=== PATIENT | male | born 1980 | race Caucasian/White ===

== ENCOUNTER 2018-09-13 13:42 | Emergency (ER) | payer OTHER ==
[~2018-09-13] VITALS: Ht 177.8 cm; Wt 104.3 kg
[2018-09-13 15:43] LABS: ANION GAP 8 mmol/L (7-16); BUN 11 mg/dL (7-18); CALCIUM 9.1 mg/dL (8.5-10.1); CHLORIDE 105 mmol/L (98-107); CO2 27 mmol/L (21-32); CREATININE 0.9 mg/dL (0.7-1.3); GLUCOSE 82 mg/dL (74-106); POTASSIUM 3.8 mmol/L (3.5-5.1); SODIUM 140 mmol/L (136-145)
[2018-09-13 15:51] LABS: TROPONIN-I <0.06 ng/mL (<0.06)
[2018-09-13 16:57] LABS: ABSOLUTE NEUTROPHILS 4.7 thou/uL (1.4-8.2); BASOPHILS 0.3 % (0.0-2.0); EOSINOPHILS 1.7 % (0.0-3.0); HEMATOCRIT 42.4 % (42.0-52.0); HEMOGLOBIN 14.8 gm/dL (14.0-18.0); MCH 30.6 pg (26.0-34.0); MCV 87.4 fL (80.0-100.0); MONOCYTES 7.9 % (1.0-8.0); PLATELET COUNT 217 thou/uL (150-400); POLYS 62.1 % (36.0-66.0); RBC 4.85 mil/uL (4.50-6.00); RDW 13.1 % (10.5-14.5); WBC 7.6 thou/uL (4.0-11.0)
[2018-09-13] MEDS ORDERED: MOBIC15 MG PO (18:02)
[2018-09-13] MEDS ORDERED: ZANAFLEX4 MG PO (18:03)
[2018-09-13 19:04] VITALS: BP 133/84
--- NOTE | 2018-09-14 11:09 | EKG ---
[place] [address] [facility] [place] [address] ELECTROCARDIOGRAM REPORT Name: JUNE SANTIAGO Room #: DEP Dwayne#: [id number] ������������������ Admission: 09/13/18 ������������������ Attend Phys: Discharge: 09/13/18 ������������������ Date of : 76 Report #: [id number] ����������������������������������������������������������������� [id number] THIS REPORT FOR: //name// [facility] ED Test Date: 2018-09-13 Test Time: 13:49:42 Pat Name: JUNE SANTIAGO Department: Room: Gender: [employer]: [place] : 1980 Requested By: Marcus Ling Order Number: [id number] MD: Lamin Flores Measurements Intervals [place] Rate: 91 P: 19 KS: 155 QRS: -8 QRSD: 90 T: 17 QT: 331 QTc: 408 Interpretive Statements Sinus rhythm Normal tracing No previous ECG available for comparison Electronically Signed On 09-14-2018 11:09:02 CDT by Lamin Flores [email or web address] ��������������������������������������������� <ELECTRONICALLY SIGNED> ���������������������������������������� By: Lamin Flores MD, [facility] ��������������������������������������������� 09/14/18 [id number] Lamin Flores MD, FACC /EPI
== END 2018-09-13 19:05 | disposition home or self-care (01) ==
LOC: ER 13:42
PROVIDERS: Nurse Practitioner Family
DX: R06.00 Dyspnea, unspecified (principal); R07.89 Other chest pain; R06.89 Other abnormalities of breathing; J45.909 Unspecified asthma, uncomplicated